=== PATIENT | female | born 1985 | race Hispanic/Latino ===

== ENCOUNTER 2016-12-13 14:25 | Emergency (ER) | payer OTHER ==
[2016-12-13 14:38] VITALS: RESP 16; TEMP 98; BMI 24.4
--- NOTE | 2016-12-13 15:01 | ED PDOC ---
Arrival/HPI - General Chief Complaint: Eye Problem Time Seen by Provider: 12/13/16 15:00 Historian: Patient - History of Present Illness Narrative History of Present Illness (Text): 12/13/16 15:15 Patient presents to emergency room complaining of redness and swelling to left upper eyelid x 2 days. Patient reports no pain, d/c or foreign body sensation of the eye. Otherwise: (-) visual changes, (-) other injury, (-) contact lens. Past Medical History - Provider Review Nursing Documentation Reviewed: Yes - Infectious Disease Hx of Infectious Diseases: None - Tetanus Immunization Tetanus Immunization: Unknown - Cardiac Hx Cardiac Disorders: No Hx Hypertension: No - Pulmonary Hx Respiratory Disorders: Yes Hx Asthma: Yes Hx Bronchitis: Yes - Neurological Hx Neurological Disorder: Yes Hx Migraine: Yes Hx Seizures: Yes - HEENT Hx HEENT Disorder: No - Renal Hx Renal Disorder: Yes Hx Kidney Stones: Yes - Endocrine/Metabolic Hx Endocrine Disorders: No - Hematological/Oncological Hx Blood Disorders: No Hx Cancer: No - Integumentary Hx Dermatological Disorder: No - Musculoskeletal/Rheumatological Hx Musculoskeletal Disorders: Yes Hx Fractures: Yes (LEFT FOREARM 2 3 4TH FINGERS) - Gastrointestinal Hx Gastrointestinal Disorders: Yes Hx Gall Bladder Disease: Yes (GALLSTONES) - Genitourinary/Gynecological Hx Genitourinary Disorders: No Hx Sexually Transmitted Diseases: No - Psychiatric Hx Psychophysiologic Disorder: Yes Hx Anxiety: Yes Hx Bipolar Disorder: Yes Hx Depression: Yes Hx Substance Use: Yes (occasional marijuana) - Surgical History Hx Cholecystectomy: Yes - Anesthesia Hx Anesthesia: Yes Hx Anesthesia Reactions: No Hx Malignant Hyperthermia: No - Suicidal Assessment Feels Threatened In Home Enviroment: No Family/Social History - Physician Review Nursing Documentation Reviewed: Yes Family/Social History: No Known Family HX Smoking Status: Heavy Smoker > 10 Cigarettes Daily Hx Alcohol Use: No Hx Substance Use: Yes (occasional marijuana) Substance used: Marijuana/ xanax Hx Substance Use Treatment: No Allergies/Home Meds Allergies/Adverse Reactions: Allergies No Known Allergies Allergy (Verified 05/29/16 11:52) Home Medications: Home Meds Medication Instructions Recorded Confirmed Alprazolam [Xanax] 1 mg PO TID 03/18/15 12/13/16 ARIPiprazole [Abilify] 5 mg PO DAILY 05/29/16 12/13/16 DULoxetine [Cymbalta] 60 mg PO DAILY 05/29/16 12/13/16 Review of Systems - Review of Systems Constitutional: Normal. absent: Fatigue, Weight Change, Fevers Eyes: Normal, Other (L eye lid redness and swelling). absent: Vision Changes, Photophobia, Eye Pain ENT: Normal. absent: Hearing Changes, Sore Throat, Rhinorrhea Skin: Normal. absent: Rash, Pruritis, Skin Lesions Physical Exam Vital Signs Reviewed: Yes Vital Signs Temp Pulse Resp BP Pulse Ox 12/13/16 15:06 90 16 127/83 98 12/13/16 14:34 98.0 F 97 H 16 128/81 97 Temperature: Afebrile Blood Pressure: Normal Pulse: Regular Respiratory Rate: Normal Appearance: Positive for: Well-Appearing, Non-Toxic, Comfortable Pain Distress: None Mental Status: Positive for: Alert and Oriented X 3 - Systems Exam Head: Present: Atraumatic, Normocephalic Pupils: Present: PERRL, Other (L eye: mild erythema and edema with stye noted to the upper eye lid, no d/c. ) Extroacular Muscles: Present: EOMI Conjunctiva: Present: Normal. No: Injected, Icteric Ears: Present: Normal Mouth: Present: Moist Mucous Membranes Neck: Present: Normal Range of Motion. No: MIDLINE TENDERNESS Skin: Present: Warm, Dry, Normal Color. No: Rashes Medical Decision Making ED Course and Treatment: 12/13/16 15:18 Patient presents to emergency room complaining of redness and swelling to left upper eyelid x 2 days. Based on history and exam, likely stye. Pt advised warm compresses to the area. Given referral to ophthalmology. Patient states she fully agrees with and understands discharge instructions. States that she agrees with the plan and disposition. Verbalized and repeated discharge instructions and plan. I have given the patient opportunity to ask any additional questions. Follow up with ophthalmology in 1-2 days without fail. Return to the emergency room at any time for any new or worsening symptoms. - PA / [employer] / Resident Statement MD/DO has reviewed & agrees with the documentation as recorded. Disposition/Present on Arrival - Present on Arrival Any Indicators Present on Arrival: No History of DVT/PE: No History of Uncontrolled Diabetes: No Urinary Catheter: No History of Decub. Ulcer: No History Surgical Site Infection Following: None - Disposition Have Diagnosis and Disposition been Completed?: Yes Diagnosis: Stye Disposition: HOME/ ROUTINE Disposition Time: 15:00 Patient Plan: Discharge Condition: STABLE Discharge Instructions (ExitCare): Jim (ED) Print Language: GIBRALTAR[place] Referrals: Aureliano Zuniga MD [Staff Provider] - Follow up with primary Forms: WORK NOTE
[2016-12-13 15:06] VITALS: BP 127/83; PULSE 90; O2SAT 98
== END 2016-12-13 15:05 | disposition home or self-care (01) ==
LOC: ED 14:25
DX: H00.014 Hordeolum externum left upper eyelid (principal)